=== PATIENT | female | born 1935 | race Caucasian/White ===

== ENCOUNTER 2020-03-04 14:19 | Emergency (ER) | payer OTHER ==
[2020-03-04 14:26] VITALS: BP 114/63; PULSE 60; TEMP 97.9; BMI 21.2
--- NOTE | 2020-03-04 15:26 | PDOC ---
Documentation entered by George Hubbard SCRIBE, acting as scribe for Jose Escobedo MD. Jose Escobedo MD: This documentation has been prepared by the Haydee mccurdy Angel, SCRIBE, under my direction and personally reviewed by me in its entirety. I confirm that the documentation accurately reflects all work, treatment, procedures, and medical decision making performed by me. History of Present Illness - General Chief Complaint: Injury Stated Complaint: FALL History Source: Patient Exam Limitations: No Limitations - History of Present Illness Initial Comments: 03/04/20 15:00 The patient is an 84 year old female who presents to the ED accompanied by her daughter s/p unwitnessed fall earlier today. The daughter states the patient went to the bathroom and fell. The daughter was not home at the time of the fall but her was. When her found the patient she was alert and responding as normal but had a bleeding laceration above her right eye which she was trying to clean herself. The daughter states the patient is able to dress herself and go to the bathroom on her own. The patient has no history of previous falls or recent injuries. The patient denies neck pain, back pain, LOC, headache or any other complaints. Past medical history: Dementia, HTN, hyperlipidemia, knee surgery (10 years ago) and gallbladder removal Medications: Aspirin 81mg Daily, Donepezil Daily, Metoprolol Succinate Daily, Ramipril Daily, Simvastatin. Patient is compliant with all medications. Past History - Medical History Allergies/Adverse Reactions: Allergies Allergy/AdvReac Type Severity Reaction Status Date / Time No Known Allergies Allergy Verified 03/04/20 14:21 Home Medications: Ambulatory Orders Aspirin [ASA -] 81 mg PO DAILY 03/04/20 Donepezil HCl 0 mg PO DAILY 03/04/20 Metoprolol Succinate [[place] Sprinkle] 0 mg PO DAILY 03/04/20 Ramipril 0 mg PO DAILY 03/04/20 Simvastatin [Zocor] 0 mg PO HS 03/04/20 Review of Systems - Review of Systems Able to Perform ROS?: Yes Comments:: 03/04/20 15:01 GENERAL/CONSTITUTIONAL: No fever or chills. No weakness. HEAD, EYES, EARS, NOSE AND THROAT: No change in vision. No ear pain or disc harge. No sore throat. CARDIOVASCULAR: No chest pain or shortness of breath. RESPIRATORY: No cough, wheezing, or hemoptysis. GASTROINTESTINAL: No nausea, vomiting, diarrhea or constipation. GENITOURINARY: No dysuria, frequency, or change in urination. MUSCULOSKELETAL: No joint or muscle swelling or pain. No neck or back pain. SKIN: +Laceration above right eye. NEUROLOGIC: No headache, vertigo, loss of consciousness, or change in strength/sensation. ENDOCRINE: No increased thirst. No abnormal weight change. HEMATOLOGIC/LYMPHATIC: No anemia, easy bleeding, or history of blood clots. ALLERGIC/IMMUNOLOGIC: No hives or skin allergy. *Physical Exam - Physical Exam 03/04/20 15:21 GENERAL: Alert and cooperative, appears to answer questions posed by daughter in barb[place], Patient does not speak citizen of [place]. According to daughter mental status as usual HEAD: +Atraumatic, superficial laceration approx 1cm above lateral right eyebrow. No swelling, bruising or hematoma. EYES: PERRLA, EOMS full without diplopia, visual shane intact. No palpable deformities of the orbital rims, zygoma, or maxillate. NECK: Full rom, no pain or tenderness LUNGS: Equal breath sounds bilaterally, no wheezes or crackles. CARDIOVASCULAR: Regular 90 bpm, no murmurs, rubs or gallops. ABDOMEN: Soft, nontender, without masses. EXTREMITIES: No palpable or visual trauma with full rom NEURO: Cranial nerves intact, no focal sensories or deficits, gait stable. 03/04/20 15:22 Medical Decision Making - Medical Decision Making 03/04/20 15:14 Patient without a history of falls, tripped in the bathroom, striking her forehead on either the sink or the floor. Found by son-in-law immediately afterward with normal mental status and fully ambulatory. Brought in by her daughter. She speaks only [place], but the daughter was able to obtain all the information requested and verify that the patient was communicating normally without any change in mental status. No sign of significant head or neck injury, or other injuries other than a superficial laceration above the right eyebrow. This was repaired. The patient was observed. And discharged fully ambulatory with her daughter to return to the ER if any further symptoms develop, otherwise follow-up primary physician. Discharge - Discharge Information Problems reviewed: Yes Clinical Impression/Diagnosis: Facial laceration Qualifiers: Encounter type: initial encounter Qualified Code(s): S01.81XA - Laceration without foreign body of other part of head, initial encounter Condition: Improved Disposition: HOME - Admission No - Follow up/Referral - Patient Discharge Instructions Patient Printed Discharge Instructions: DI for Laceration Repair With Dermabond, DI for Closed Head Injury - Post Discharge Activity
== END 2020-03-04 15:03 | disposition home or self-care (01) ==
LOC: FER 14:19
DX: S01.81XA Laceration without foreign body of other part of head, initial encounter (principal); W01.198A Fall on same level from slipping, tripping and stumbling with subsequent striking against other object, initial encounter
CPT/HCPCS: 99282-25

== ENCOUNTER 2021-10-28 17:51 | Emergency (ER) | payer OTHER ==
[2021-10-28 18:27] VITALS: BP 101/49; PULSE 66; TEMP 97.9; BMI 18.0
[2021-10-28] MEDS ORDERED: ACETAMINOPHEN 1000 MG/100 ML BAG IVPB ONE (18:46)
[2021-10-28 19:01] LABS: EOS % 4.4 % (0-4.5); HEMATOCRIT 35.6 % (32.4-45.2); HEMOGLOBIN 11.9 GM/dL (10.7-15.3); LYMPH % 26.3 % (8-40); MCH 33.1 pg (25.7-33.7); MCHC 33.5 g/dl (32.0-36.0); MEAN CELL VOLUME 98.8 fl (80-96); MEAN PLT VOLUME 8.3 fl (7.5-11.1); MONO % 17.9 % (3.8-10.2); NEUT % 50.4 % (42.8-82.8); PLATELET COUNT 179 10^3/uL (134-434); RBC 3.61 M/mm3 (3.60-5.2); RDW 13.7 % (11.6-15.6)
[2021-10-28] MEDS ORDERED: ACETAMINOPHEN INJECTION 100 ML IVPB ONE (19:07)
[2021-10-28 19:22] LABS: CALCIUM 9.1 mg/dL (8.5-10.1)
[2021-10-28 19:23] LABS: ALBUMIN 2.8 g/dl (3.4-5.0); BLOOD UREA NITROGEN 14.2 mg/dL (7-18); MAGNESIUM 2.2 mg/dL (1.8-2.4)
[2021-10-28 19:26] LABS: CREATININE 0.6 mg/dL (0.55-1.3); PHOSPHOROUS 3.5 mg/dL (2.5-4.9)
[2021-10-28 19:27] LABS: BILIRUBIN,TOTAL 0.7 mg/dL (0.2-1)
[2021-10-28 19:28] LABS: TOT PROT 5.7 g/dl (6.4-8.2)
[2021-10-28 21:25] LABS: PH,URINE 6.5 (5.0-8.0); URINE APPEARANCE CLEAR; URINE BILIRUBIN NEGATIVE (NEGATIVE); URINE COLOR YELLOW; URINE GLUCOSE (UA) NEGATIVE (NEGATIVE); URINE KETONE TRACE (NEGATIVE); URINE LEUK ESTERASE NEGATIVE (NEGATIVE); URINE NITRITE NEGATIVE (NEGATIVE); URINE PROTEIN NEGATIVE (NEGATIVE)
== END 2021-10-28 22:28 | disposition left against medical advice (07) ==
LOC: JER 17:51
PROC: 3E033GC Introduction of Other Therapeutic Substance into Peripheral Vein, Percutaneous Approach (ICD-10-PCS; principal; 2021-10-28)
DX: R53.81 Other malaise (principal); M54.89 Other dorsalgia; W19.XXXA Unspecified fall, initial encounter
CPT/HCPCS: 36415; 70450-TC; 71045-TC-FY; 72125-TC; 72128-TC; 72131-TC; 72170-TC-FY; 80053; 81003; 83735; 84100; 84484; 85025; 87086; 93005; 93010; 99285-25

== ENCOUNTER 2021-11-02 16:26 | Inpatient (IN) | payer MEDICARE, OTHER ==
[2021-11-02] MEDS ORDERED: LACTATED RINGERS SOLUTION 1000 ML INFUS.BAG IV ONE (17:46)
[2021-11-02 18:53] LABS: BASO % 0.6 % (0-2.0); EOS % 1.5 % (0-4.5); HEMATOCRIT 36.5 % (32.4-45.2); HEMOGLOBIN 12.3 GM/dL (10.7-15.3); LYMPH % 18.8 % (8-40); MCHC 33.5 g/dl (32.0-36.0); MEAN CELL VOLUME 98.4 fl (80-96); MEAN PLT VOLUME 8.8 fl (7.5-11.1); MONO % 14.2 % (3.8-10.2); NEUT % 64.9 % (42.8-82.8); PLATELET COUNT 260 10^3/uL (134-434); RBC 3.71 M/mm3 (3.60-5.2); RDW 13.3 % (11.6-15.6)
[2021-11-02 19:01] LABS: INR 1.03 (0.83-1.09); PROTHROMBIN TIME (PATIENT) 11.9 SEC (9.7-13.0)
[2021-11-02 19:15] LABS: BLOOD UREA NITROGEN 9.5 mg/dL (7-18); CALCIUM 9.2 mg/dL (8.5-10.1); MAGNESIUM 2.1 mg/dL (1.8-2.4)
[2021-11-02 19:18] LABS: CREATININE 0.6 mg/dL (0.55-1.3)
[2021-11-02 19:19] LABS: TOT PROT 6.4 g/dl (6.4-8.2)
[2021-11-02 19:20] LABS: BILIRUBIN,TOTAL 0.6 mg/dL (0.2-1)
[2021-11-02] MEDS ORDERED: BISACODYL 5 MG TABLET.DR (FP) PO PRN (22:54)
[2021-11-02 23:07] LABS: EPI CELLS 8 /uL (0-25.1); HYALINE CASTS 2 /uL (0-3.1); PH,URINE >= 9.0 (5.0-8.0); URINE APPEARANCE CLOUDY; URINE BACTERIA >9,000 /uL (0-1359); URINE BILIRUBIN NEGATIVE (NEGATIVE); URINE COLOR YELLOW; URINE GLUCOSE (UA) NEGATIVE (NEGATIVE); URINE KETONE TRACE (NEGATIVE); URINE LEUK ESTERASE 2+ (NEGATIVE); URINE NITRITE NEGATIVE (NEGATIVE); URINE PROTEIN 1+ (NEGATIVE); URINE WBC 1025 /uL (0-25.8)
[2021-11-02] MEDS ORDERED: CEFTRIAXONE 1 GM in DEXTROSE 5%-WATER - 50 ML IVPB ONE (23:09)
[2021-11-02] MEDS ORDERED: CEFTRIAXONE 1 GM/50 ML BAG ONE (23:17)
[2021-11-02 23:39] LABS: URINE RBC 226.2 /uL (0-23.9)
[2021-11-02] MEDS: LACTATED RINGERS SOLUTION 1,000 ML/1,000 ML INFUS.BAG IV SCH (23:49)
[2021-11-03] MEDS ORDERED: traZODone HCL 50 MG TABLET (FP) PO ONE (02:24)
[2021-11-03] MEDS ORDERED: QUEtiapine FUMARATE 50 MG TABLET PO ONE (02:25)
[2021-11-03] MEDS ORDERED: QUEtiapine FUMARATE 25 MG TABLET ONE (02:27)
[2021-11-03] MEDS ORDERED: QUEtiapine FUMARATE 25 MG TABLET PO ONE (02:45)
[2021-11-03] MEDS: LACTATED RINGERS SOLUTION 1,000 ML/1,000 ML INFUS.BAG IV SCH (03:24)
[2021-11-03] MEDS ORDERED: VALPROIC ACID PO SCH (06:00)
[2021-11-03] MEDS: VALPROATE SODIUM 250 MG/5 ML UNIT DOSE CUP PO SCH ×5 (06:01→22:42)
[2021-11-03] MEDS ORDERED: SODIUM CHLORIDE 1,000 ML IV SCH ×2 (08:15)
[2021-11-03] MEDS ORDERED: cefTRIAXone SODIUM 1 GM VIAL ONE (09:46)
[2021-11-03] MEDS ORDERED: DEXTROSE 5%-WATER - 50 ML IVPB ONE (09:46)
[2021-11-03] MEDS: CEFTRIAXONE 1 GM in DEXTROSE 5%-WATER - 50 ML IVPB SCH (10:33)
[2021-11-03] MEDS: ENOXAPARIN NA (PORCINE) 40 MG/0.4 ML DISP.SYRIN SQ SCH (10:34)
[2021-11-03] MEDS: ASPIRIN 81 MG CHEWABLE TABLETS PO SCH (10:42)
[2021-11-03] MEDS: ATORVASTATIN CA 10 MG TABLET (FP) PO SCH (10:42)
[2021-11-03] MEDS: QUEtiapine FUMARATE 25 MG TABLET PO SCH ×2 (10:42→22:43)
[2021-11-03 10:47] LABS: CALCIUM 9.4 mg/dL (8.5-10.1)
[2021-11-03 10:49] LABS: ALBUMIN 3.1 g/dl (3.4-5.0); BLOOD UREA NITROGEN 6.6 mg/dL (7-18)
[2021-11-03 10:52] LABS: CREATININE 0.6 mg/dL (0.55-1.3)
[2021-11-03 10:54] LABS: BILIRUBIN,TOTAL 0.7 mg/dL (0.2-1)
[2021-11-03] MEDS: POLYETHYLENE GLYCOL (HEALTHYLAX) 3350 17 GM PACKET PO SCH (11:28)
[2021-11-03 11:49] LABS: BASO % 0.6 % (0-2.0); EOS % 1.5 % (0-4.5); HEMATOCRIT 33.4 % (32.4-45.2); HEMOGLOBIN 11.6 GM/dL (10.7-15.3); LYMPH % 18.6 % (8-40); MCH 33.7 pg (25.7-33.7); MCHC 34.6 g/dl (32.0-36.0); MEAN CELL VOLUME 97.4 fl (80-96); MEAN PLT VOLUME 8.4 fl (7.5-11.1); MONO % 14.6 % (3.8-10.2); NEUT % 64.7 % (42.8-82.8); PLATELET COUNT 235 10^3/uL (134-434); RBC 3.43 M/mm3 (3.60-5.2); RDW 13.5 % (11.6-15.6); WHITE BLOOD COUNT 4.8 K/mm3 (4.0-10.0)
[2021-11-03] MEDS: RAMIPRIL 5 MG CAPSULE PO SCH (12:00)
[2021-11-03] MEDS: TRIAMTERENE AND HCTZ - 37.5 MG/25 MG CAPSULE PO SCH (12:59)
[2021-11-03] MEDS ORDERED: MULTIVIT INJECTION ADULT 10 ML in AMINO ACIDS 4.25%/D5W 1,000 ML IV SCH (16:45)
[2021-11-03] MEDS: AMINO ACIDS 4.25%/D5W 1,000 ML IV SCH (17:28)
[2021-11-03] MEDS: MULTIVIT INJ. ADULT COMBO WITH VIT K 1 COMBO 10 ML VIAL IV SCH (17:30)
[2021-11-03] MEDS: THIAMINE HCL 200 MG/2 ML VIAL IVPB SCH (17:34)
[2021-11-03] MEDS ORDERED: traZODone HCL 50 MG TABLET (FP) PO SCH (22:00)
[2021-11-03] MEDS ORDERED: FAT EMULSIONS 250 ML IV SCH (22:00)
[2021-11-03] MEDS ORDERED: FAT EMULSIONS 20% 250 ML PREMIX INFUS.BAG IV SCH (22:00)
[2021-11-04] MEDS: VALPROATE SODIUM 250 MG/5 ML UNIT DOSE CUP PO SCH ×3 (06:19→14:11)
[2021-11-04 09:12] LABS: CALCIUM 8.8 mg/dL (8.5-10.1)
[2021-11-04 09:13] LABS: ALBUMIN 2.7 g/dl (3.4-5.0); BLOOD UREA NITROGEN 8.5 mg/dL (7-18)
[2021-11-04 09:15] LABS: CREATININE 0.5 mg/dL (0.55-1.3); HEMATOCRIT 36.1 % (32.4-45.2); HEMOGLOBIN 12.1 GM/dL (10.7-15.3); MCHC 33.6 g/dl (32.0-36.0); MEAN CELL VOLUME 98.3 fl (80-96); MEAN PLT VOLUME 9.3 fl (7.5-11.1); PLATELET COUNT 267 10^3/uL (134-434); RBC 3.67 M/mm3 (3.60-5.2); RDW 13.3 % (11.6-15.6); WHITE BLOOD COUNT 5.7 K/mm3 (4.0-10.0)
[2021-11-04 09:17] LABS: BILIRUBIN,TOTAL 0.7 mg/dL (0.2-1); TOT PROT 6.1 g/dl (6.4-8.2)
[2021-11-04] MEDS ORDERED: DEXTROSE 5%-WATER - 50 ML IVPB ONE (10:25)
[2021-11-04] MEDS ORDERED: cefTRIAXone SODIUM 1 GM VIAL ONE (10:25)
[2021-11-04] MEDS: ATORVASTATIN CA 10 MG TABLET (FP) PO SCH (10:31)
[2021-11-04] MEDS: POLYETHYLENE GLYCOL (HEALTHYLAX) 3350 17 GM PACKET PO SCH (10:31)
[2021-11-04] MEDS: ENOXAPARIN NA (PORCINE) 40 MG/0.4 ML DISP.SYRIN SQ SCH (10:31)
[2021-11-04] MEDS: ASPIRIN 81 MG CHEWABLE TABLETS PO SCH (10:32)
[2021-11-04] MEDS: QUEtiapine FUMARATE 25 MG TABLET PO SCH (10:32)
[2021-11-04] MEDS: TRIAMTERENE AND HCTZ - 37.5 MG/25 MG CAPSULE PO SCH (10:36)
[2021-11-04] MEDS: RAMIPRIL 5 MG CAPSULE PO SCH (10:36)
[2021-11-04] MEDS: CEFTRIAXONE 1 GM in DEXTROSE 5%-WATER - 50 ML IVPB SCH (11:21)
[2021-11-04 12:12] VITALS: BMI 19.3
[2021-11-04] MEDS: THIAMINE HCL 200 MG/2 ML VIAL IVPB SCH (12:21)
[2021-11-04 14:51] VITALS: BP 135/74; PULSE 89; TEMP 98.4
[2021-11-04] MEDS: MULTIVIT INJ. ADULT COMBO WITH VIT K 1 COMBO 10 ML VIAL IV SCH (18:39)
[2021-11-04] MEDS: AMINO ACIDS 4.25%/D5W 1,000 ML IV SCH (18:39)
== END 2021-11-04 19:13 | disposition home or self-care (01) | DRG 391 ==
LOC: JER 16:26 → INTOOBSV 22:14 → JERBED 22:14 → J5S 11-03 03:21 → OBSVTOIN 11-04 07:50
PROVIDERS: ADMIT Internal Medicine; ATTEND Internal Medicine
DX: K59.00 Constipation, unspecified (principal); E43 Unspecified severe protein-calorie malnutrition; N39.0 Urinary tract infection, site not specified; F03.91 Unspecified dementia, unspecified severity, with behavioral disturbance; Z68.1 Body mass index [BMI] 19.9 or less, adult; E46 Unspecified protein-calorie malnutrition; R62.7 Adult failure to thrive; B96.20 Unspecified Escherichia coli [E. coli] as the cause of diseases classified elsewhere; I10 Essential (primary) hypertension; E78.5 Hyperlipidemia, unspecified
CPT/HCPCS: 36415; 74177-TC; 80053; 81003; 83605; 83690; 83735; 84443; 84478; 85025; 85027; 85610; 85730; 86850; 86900; 86901; 87086; 87186; 93005; 93010; 97116-GP; 97162-GP; 99285-25; C9803-CS; G0378; U0003; U0005